=== PATIENT | male | born 1990 | race Caucasian/White ===

== ENCOUNTER 2017-02-17 10:13 | Day surgery (SDC) | payer OTHER ==
--- NOTE | ~2017-02-17 | OP ---
Record Of Operation [facility] [address] [place]. [address] NAME: KIRILL SHAY : 89 STATUS : [facility] UNIT#: [id number] AGE: 27 ADM/REG DATE : 02/17/17 MR#: [id number] REPORT SERV DATE: 02/17/17 DICTATED BY: ANTON DIGGS II DATE: 02/17/17 REPORT STATUS : Draft TRANSCRIBED BY: MODL DATE: 02/17/17 DATE OF PROCEDURE: 02/17/2017 PREOPERATIVE DIAGNOSES: 1. Very large herniated nucleus pulposus, L5-S1. 2. Severe radiculopathy, L5-S1. 3. L4-S1 degenerative disk disease. POSTOPERATIVE DIAGNOSES: 1. Very large herniated nucleus pulposus, L5-S1. 2. Severe radiculopathy, L5-S1. 3. L4-S1 degenerative disk disease. PROCEDURE: 1. Left L5-S1 microdiskectomy. 2. Use of the microscope and stereotactic spinal imaging. SURGEON: Dr. Anton Diggs. FLUIDS: One liter lactated Ringer's. ESTIMATED BLOOD LOSS: 10 mL. DRAINS: None. COMPLICATIONS: None. ANTIBIOTIC: Preoperatively. PREOPERATIVE HISTORY: This is a very friendly 27-year-old gentleman, who works for the [employer] who reports severe buttock and leg pain. I saw him in the office and he was in severe pain. He was accompanied by his mother. He reports a positive family history for degenerative disk disease. We discussed the fact that he did have somewhat surprising amount of degeneration at L4-5 and L5-S1. His pain generator was obviously a very large herniation at L5-S1. He had reflex changes and mild weakness and overall was very uncomfortable. We discussed the pros and cons of observation versus an epidural steroid injection versus surgery. He is very interested in trying to move forward and feel better. I discussed with him and his mother the rates of success versus failure of the microdiskectomy procedure. We discussed the microscopic aspect of the surgery as well as the navigation assistance. We discussed more over the rates of success for decreasing leg pain respectively. We discussed the fact that surgery had risks of course, which include but are not limited to infection, abscess, and a very small chance of nerve damage. We discussed the more concerning aspect of his problem, which was chance of a disk herniation recurrence. DESCRIPTION OF PROCEDURE: After informed consent was obtained, the patient was brought to Record Of Operation [address] [place]. [address] NAME: KIRILL SHAY : 89 STATUS : [facility]#: [id number] AGE: 27 ADM/REG DATE : 02/17/17 MR#: [id number] REPORT SERV DATE: 02/17/17 DICTATED BY: ANTON DIGGS II DATE: 02/17/17 REPORT STATUS : Draft TRANSCRIBED BY: JAHAIRA DATE: 02/17/17 the operating room at his request and general anesthesia achieved. He was placed in the prone position and the back was prepped and draped in a sterile fashion. The stereotactic spinal pin was placed into the iliac crest on the right followed by completion of the intraoperative CT scan. Next, the minimally invasive incision was performed on the left at L5-S1 and the minimally invasive 22 mm diameter, 8 cm deep tubular retractor was placed followed by use of the microscope. Under microscopic visualization, the bipolar electrocautery was used to remove the soft tissue from the interlaminar space. The high- speed bur was then used to perform the laminotomy. The curved curettes were now used to detach ligamentum flavum. The S1 nerve root was then identified. It was significantly posteriorly displaced secondary to the large partially contained and partially extruded fragment. The S1 nerve root was then gently retracted followed by bipolar electrocautery. Next, the extruded portion was now removed from the canal. There was then an another large contained fragment, which required a small annulotomy. This allowed delivery of an another large piece of disk. The S1 nerve root was now immediately well decompressed after removal of these fragments. Following irrigation and hemostasis confirmation, the S1 nerve root was then gently retracted and several other small fragments retrieved from the disk space with the micro pituitaries. Next, Depo-Medrol was placed over the nerve root followed by removal of the tubular retractor. Hemostasis was once again confirmed followed by standard closure, and the patient was extubated and transferred to PACU in stable condition. I then spoke with his mother and girlfriend at length, and we discussed the postoperative recovery once again. We discussed the fact that he could return to work on Monday as he desired light duty. No lifting more than 15 pounds. JJ/MODL nAton Diggs II, M.D. / [id number] CC: Phil Benjamin II, III, D.O.
[~2017-02-17 10:13] MED LIST: METHOC500B PO; NAP500 PO; NORCO1 TA2 PO; STERAPRED DS10 MG
== END 2017-02-17 17:24 | disposition home or self-care (01) ==
LOC: SDC 10:13
PROVIDERS: Orthopaedic Surgery
PROC: 01NB0ZZ Release Lumbar Nerve, Open Approach (ICD-10-PCS; 2017-02-17)
PROC: 0SB20ZZ Excision of Lumbar Vertebral Disc, Open Approach (ICD-10-PCS; principal; 2017-02-17 11:45)
DX: M51.17 Intervertebral disc disorders with radiculopathy, lumbosacral region (principal); J40 Bronchitis, not specified as acute or chronic; K58.9 Irritable bowel syndrome, unspecified; H10.10 Acute atopic conjunctivitis, unspecified eye; Z98.890 Other specified postprocedural states; Z79.891 Long term (current) use of opiate analgesic; Z79.899 Other long term (current) drug therapy
CPT/HCPCS: 76000; 88304; 88311; A9270-GY; J0690; J1030; J1170; J1885; J2250; J2405; J2710; J3010